=== PATIENT | male | born 1975 | race Caucasian/White ===

== ENCOUNTER 2017-06-08 19:14 | Emergency (ER) | payer SELFPAY ==
[2017-06-08] MEDS ORDERED: Sodium Chloride 0.9% 1,000 ML IV ONE ×2 (20:26→21:10)
[2017-06-08] MEDS ORDERED: Ondansetron 4 MG/2 ML SDV IVPUSH ONE (20:28)
--- NOTE | 2017-06-08 20:28 | EDM.PDOC ---
ED HPI GENERAL MEDICAL PROBLEM - General Chief Complaint: Gastrointestinal Problem Stated Complaint: NASUEA,VOMATING Time Seen by Provider: 06/08/17 20:27 Source of Information: Reports: Patient - History of Present Illness INITIAL COMMENTS - FREE TEXT/NARRATIVE: HISTORY AND PHYSICAL: History of present illness: []Patient is a 42-year-old male with history of diabetes who presents with coughing fits for 2 days he has coughed until he has vomited he has had some stomach upset since, he does not check his glucose over the last couple of weeks as he has lost his glucometer. He has smoking history [id number] denies fever complains of a cough and vomiting no abdominal discomfort previous appendectomy last bowel movement yesterday Review of systems: As per history of present illness and below otherwise all systems reviewed and negative. Past medical history: As per history of present illness and as reviewed below otherwise noncontributory. Surgical history: As per history of present illness and as reviewed below otherwise noncontributory. Social history: No reported history of drug or alcohol abuse. Family history: As per history of present illness and as reviewed below otherwise noncontributory. Physical exam: HEENT: Atraumatic, normocephalic, pupils reactive, negative for conjunctival pallor or scleral icterus, mucous membranes moist, throat clear, neck supple, nontender, trachea midline. Tenderness on frontal and maxillary sinuses left greater than right Lungs: Clear to auscultation, breath sounds equal bilaterally, chest nontender. Heart: S1S2, regular, negative for clicks, rubs, or JVD. Abdomen: Soft, nondistended diffusely tender with focus in the right lower quadrant Negative for masses or hepatosplenomegaly. Negative for costovertebral tenderness. Pelvis: Stable nontender. Genitourinary: Deferred. Rectal: Deferred. Extremities: Atraumatic, negative for cords or calf pain. Neurovascular unremarkable. Neuro: Awake, alert, oriented. Cranial nerves II through XII unremarkable. Cerebellum unremarkable. Motor and sensory unremarkable throughout. Exam nonfocal. Diagnostics: []Lab as below EKG Chest [address] abdomen pelvis with contrast Therapeutics: []Liter normal saline bolus x2 Zofran 8 mg IV DuoNeb insulin 10 U sc 10 uIV zpak 250mg no rf hfa glucometer 1 month supply f/u pcp 2 weekis rpw Impression: Hyperglycemia 222 on d/c nausea Acute bronchitis Acute sinusitis Chronic history of baseline Definitive disposition and diagnosis as appropriate pending reevaluation and review of above. generalized Pain Score (Numeric/FACES): 8 - Related Data Allergies Allergy/AdvReac Type Severity Reaction Status Date / Time Sulfa (Sulfonamide Allergy Rash Verified 06/08/17 19:48 Antibiotics) Home Meds: Home Meds Insulin Npl/Insulin Lispro [HumaLOG Mix 75-25 Vial] 50 unit SQ 06/08/17 [History ] Jenuvia 06/08/17 [History] glipiZIDE [Glipizide ER] 20 mg PO 06/08/17 [History] metFORMIN [Glucophage XR] 500 mg PO BIDMEALS 06/08/17 [History] Past Medical History HEENT History: Reports: Impaired Vision Cardiovascular History: Reports: Heart Murmur, Hypertension Respiratory History: Reports: None Other Respiratory History: current smoker Genitourinary History: Reports: None Musculoskeletal History: Reports: Arthritis Neurological History: Reports: Head Trauma Psychiatric History: Reports: None Endocrine/Metabolic History: Reports: Diabetes, Type II Hematologic History: Reports: None Oncologic (Cancer) History: Reports: None Dermatologic History: Reports: None - Infectious Disease History Infectious Disease History: Reports: None - Past Surgical History HEENT Surgical History: Reports: Other (See Below) Other HEENT Surgeries/Procedures: corrective eye surgery GI Surgical History: Reports: Appendectomy Social & Family History - Family History Family Medical History: Noncontributory - Tobacco Use Smoking Status *Q: Current Every Day Smoker Years of Tobacco use: 30 Packs/Tins Daily: 1 - Recreational Drug Use Recreational Drug Use: Yes Recreational Drug Type: Reports: Marijuana/Hashish ED ROS GENERAL - Review of Systems Review Of Systems: See Below ED EXAM, GENERAL - Physical Exam Exam: See Below Course - Vital Signs Last Recorded V/S: Last Vital Signs Temp 36.6 C 06/08/17 21:59 Pulse 104 H 06/08/17 21:59 Resp 17 06/08/17 21:59 BP 128/80 06/08/17 21:59 Pulse Ox 94 L 06/08/17 21:59 - Orders/Labs/Meds Orders: Active Orders 24 hr Category Date Time Status EKG Documentation Completion [RC] STAT Care 06/08/17 20:26 Active RT Aerosol Therapy [RC] ASDIRECTED Care 06/08/17 20:33 Active Abdomen Pelvis w Cont [CT] Stat Exams 06/08/17 22:48 Taken Chest 1V Frontal [CR] Stat Exams 06/08/17 20:26 Taken Labs: Laboratory Tests 06/08/17 06/08/17 06/08/17 Range/Units 20:35 20:35 20:35 WBC 7.21 (4.0-11.0) K/uL RBC 5.57 (4.50-5.90) M/uL Hgb 16.6 (13.0-17.0) g/dL Hct 46.2 (38.0-50.0) % MCV 82.9 (80.0-98.0) fL MCH 29.8 (27.0-32.0) pg MCHC 35.9 (31.0-37.0) g/dL RDW Std Deviation 38.1 (28.0-62.0) fl RDW Coeff of Sagr[place] 13 (11.0-15.0) % Plt Count 229 (150-400) K/uL MPV 10.60 (7.40-12.00) fL Add Manual Diff YES Neutrophils % (Manual) 71 (48.0-80.0) % Lymphocytes % (Manual) 11 L (16.0-40.0) % Monocytes % (Manual) 15 (0.0-15.0) % Eosinophils % (Manual) 2 (0.0-7.0) % Basophils % (Manual) 1 (0.0-1.5) % Nucleated RBC % 0.0 /100WBC Absolute Seg Neuts 5.1 Lymphocytes # (Manual) 0.8 Monocytes # (Manual) 1.1 Eosinophils # (Manual) 0.1 Basophils # (Manual) 0 Nucleated RBCs # 0 K/uL ABG pH (7.35-7.45) ABG pCO2 (35-45) mmHG ABG pO2 (75-100) mmHG ABG HCO3 (22-26) mEq/L ABG Total CO2 ABG Base Excess (-2.0-2.0) Sodium 132 L (136-146) mmol/L Potassium 4.7 (3.5-5.1) mmol/L Chloride 96 L (98-110) mmol/L Carbon Dioxide 21 (21-31) mmol/L BUN 14 (6.0-23.0) mg/dL Creatinine 1.2 (0.6-1.5) mg/dL Est Cr Clr Drug Dosing 73.84 mL/min Estimated GFR (MDRD) > 60.0 ml/min Glucose 585 H* (60-110) mg/dL POC Glucose (60-110) mg/dL Calcium 9.8 (8.8-10.8) mg/dL Total Bilirubin 0.6 (0.1-1.5) mg/dL AST 12 (5-40) IU/L ALT 10 (8-54) IU/L Alkaline Phosphatase 126 (40-150) Troponin I < 0.10 (0.0-0.29) NG/ML Total Protein 7.5 (6.0-8.0) g/dL Albumin 4.3 (3.5-5.0) g/dL Globulin 3.2 (2.0-3.5) g/dL Albumin/Globulin Ratio 1.3 (1.3-2.8) Amylase 17 (10-90) U/L Lipase 14 (7-80) U/L Urine Color Urine Appearance Urine pH (5.0-8.0) Ur Specific R[place]con (1.001-1.035) Urine Protein (NEGATIVE) mg/dL Urine Glucose (UA) (NEGATIVE) mg/dL Urine Ketones (NEGATIVE) mg/dL Urine Occult Blood (NEGATIVE) Urine Nitrite (NEGATIVE) Urine Bilirubin (NEGATIVE) Urine Urobilinogen (<2.0) EU/dL Ur Leukocyte Esterase (NEGATIVE) Urine RBC (0-2/HPF) Urine WBC (0-5/HPF) Ur Epithelial Cells (NONE-FEW) Amorphous Sediment (NEGATIVE) Urine Bacteria (NEGATIVE) 06/08/17 06/08/17 06/08/17 Range/Units 21:11 22:00 22:05 WBC (4.0-11.0) K/uL RBC (4.50-5.90) M/uL Hgb (13.0-17.0) g/dL Hct (38.0-50.0) % MCV (80.0-98.0) fL MCH (27.0-32.0) pg MCHC (31.0-37.0) g/dL RDW Std Deviation (28.0-62.0) fl RDW Coeff of [place] (11.0-15.0) % Plt Count (150-400) K/uL MPV (7.40-12.00) fL Add Manual Diff Neutrophils % (Manual) (48.0-80.0) % Lymphocytes % (Manual) (16.0-40.0) % Monocytes % (Manual) (0.0-15.0) % Eosinophils % (Manual) (0.0-7.0) % Basophils % (Manual) (0.0-1.5) % Nucleated RBC % /100WBC Absolute Seg Neuts Lymphocytes # (Manual) Monocytes # (Manual) Eosinophils # (Manual) Basophils # (Manual) Nucleated RBCs # K/uL ABG pH 7.390 (7.35-7.45) ABG pCO2 36 (35-45) mmHG ABG pO2 78 (75-100) mmHG ABG HCO3 22 (22-26) mEq/L ABG Total CO2 19.2 ABG Base Excess -2.6 L (-2.0-2.0) Sodium (136-146) mmol/L Potassium (3.5-5.1) mmol/L Chloride (98-110) mmol/L Carbon Dioxide (21-31) mmol/L BUN (6.0-23.0) mg/dL Creatinine (0.6-1.5) mg/dL Est Cr Clr Drug Dosing mL/min Estimated GFR (MDRD) ml/min Glucose (60-110) mg/dL POC Glucose 288 H (60-110) mg/dL Calcium (8.8-10.8) mg/dL Total Bilirubin (0.1-1.5) mg/dL AST (5-40) IU/L ALT (8-54) IU/L Alkaline Phosphatase (40-150) Troponin I (0.0-0.29) NG/ML Total Protein (6.0-8.0) g/dL Albumin (3.5-5.0) g/dL Globulin (2.0-3.5) g/dL Albumin/Globulin Ratio (1.3-2.8) Amylase (10-90) U/L Lipase (7-80) U/L Urine Color YELLOW Urine Appearance CLEAR Urine pH 5.5 (5.0-8.0) Ur Specific R[place] 1.010 (1.001-1.035) Urine Protein NEGATIVE (NEGATIVE) mg/dL Urine Glucose (UA) >=1000 (NEGATIVE) mg/dL Urine Ketones 40 H (NEGATIVE) mg/dL Urine Occult Blood NEGATIVE (NEGATIVE) Urine Nitrite NEGATIVE (NEGATIVE) Urine Bilirubin NEGATIVE (NEGATIVE) Urine Urobilinogen 0.2 (<2.0) EU/dL Ur Leukocyte Esterase NEGATIVE (NEGATIVE) Urine RBC NONE SEEN (0-2/HPF) Urine WBC 0-1 (0-5/HPF) Ur Epithelial Cells RARE (NONE-FEW) Amorphous Sediment RARE (NEGATIVE) Urine Bacteria RARE (NEGATIVE) Meds: Medications Discontinued Medications Generic Name Dose Route Start Last Admin Trade Name Freq PRN Reason Stop Dose Admin Albuterol/Ipratropium 3 ml 06/08/17 20:33 06/08/17 20:49 Duoneb 3.0-0.5 Mg/3 Ml NEB 06/08/17 20:34 3 ml ONETIME ONE Administration Sodium Chloride 1,000 mls @ 999 mls/hr 06/08/17 20:26 06/08/17 20:39 Normal Saline IV 06/08/17 21:26 999 mls/hr STAT ONE Administration Sodium Chloride 1,000 mls @ 999 mls/hr 06/08/17 21:10 06/08/17 21:20 Normal Saline IV 06/08/17 22:10 999 mls/hr STAT ONE Administration Insulin Human Regular 10 unit 06/08/17 21:10 06/08/17 21:30 Novolin R IVPUSH 06/08/17 21:11 10 units ONETIME ONE Administration Protocol Insulin Human Regular 10 unit 06/08/17 21:11 06/08/17 21:33 Novolin R SUBCUT 06/08/17 21:12 10 units NOW STA Administration Protocol Iopamidol 100 ml 06/08/17 23:20 06/08/17 23:21 Isovue-370 (76%) IVPUSH 06/08/17 23:21 100 ml ONETIME STA Administration Methylprednisolone Sodium Succinate 125 mg 06/08/17 20:33 06/08/17 20:45 Solu-Medrol IVPUSH 06/08/17 20:34 125 mg ONETIME ONE Administration Ondansetron HCl 8 mg 06/08/17 20:28 06/08/17 20:43 Zofran IVPUSH 06/08/17 20:29 8 mg ONETIME ONE Administration Departure - Departure Time of Disposition: 00:49 Disposition: Home, Self-Care 01 Condition: Good Clinical Impression: Abdominal pain, Sinusitis, Bronchitis - Discharge Information Referrals: PCP,None [Primary Care Provider] - Forms: ED Department Discharge - My Orders Last 24 Hours: My Active Orders 06/08/17 20:26 EKG Documentation Completion [RC] STAT Chest 1V Frontal [CR] Stat 06/08/17 20:33 RT Aerosol Therapy [RC] ASDIRECTED 06/08/17 22:48 Abdomen Pelvis w Cont [CT] Stat - Assessment/Plan Last 24 Hours: My Active Orders 06/08/17 20:26 EKG Documentation Completion [RC] STAT Chest 1V Frontal [CR] Stat 06/08/17 20:33 RT Aerosol Therapy [RC] ASDIRECTED 06/08/17 22:48 Abdomen Pelvis w Cont [CT] Stat
[2017-06-08] MEDS ORDERED: Albuterol/Ipratropium 3.0-0.5 MG/3 ML Neb Soln NEB ONE (20:33)
[2017-06-08] MEDS ORDERED: methylPREDNISolone Sodium Succinate 125 MG/2 ML SDV IVPUSH ONE (20:33)
[2017-06-08 21:09] LABS: CHLORIDE,CL 96 mmol/L (98-110); SODIUM,NA 132 mmol/L (136-146)
[2017-06-08] MEDS ORDERED: Insulin Regular, Human 100 Units/ML 10 ML Vial IVPUSH ONE (21:10)
[2017-06-08] MEDS ORDERED: Insulin Regular, Human 100 Units/ML 10 ML Vial SUBCUT STA (21:11)
[2017-06-08] MEDS ORDERED: Iopamidol 755 Mg/ML 100 ML Bottle IVPUSH STA (23:20)
[2017-06-09 04:55] VITALS: BP 98/64
--- NOTE | 2017-06-09 10:24 | CR ---
EXAM DATE: 06/08/17 PATIENT'S AGE: 42 Patient: KYARA BAILEY Facility: [place], [place] Site . Site : 1975 Study: XRay Chest [id number]/26/2017 9:37:34 PM Ordering Physician: Zulema Hernandez Final Report: INDICATION: Pain, nausea and vomiting TECHNIQUE: Chest were reviewed COMPARISON: Move current FINDINGS: Cardiovascular and mediastinum: Heart size and vasculature are normal in caliber and appearance. Mediastinum is within normal limits. Lungs and pleural spaces: Lungs are clear. No sign of infiltrate or mass. No sign of pleural effusion. No pneumothorax. 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 IMPRESSION: No acute pulmonary or cardiac abnormalities. Dictated by Mayank Trevizo MD @ 06/08/2017 10:04:58 PM Dictated by: Mayank Trevizo MD @ 06/08/2017 22:05:04 (Electronic Signature) Report Signed by Proxy. BLAZE
--- NOTE | 2017-06-09 10:25 | CT ---
EXAM DATE: 06/08/17 PATIENT'S AGE: 42 Patient: KYARA BAILEY Facility: [place], [place] Site . Site : 1975 Study: CT Abdomen/Pelvis W CONT [id number]/26/2017 11:25:28 PM Ordering Physician: Zulema Hernandez Final Report: INDICATION: ABDOMINAL PAIN, DIZZINESS, BLURRED VISION FOR [address] ABDOMEN AND PELVIS WITH CONTRAST TECHNIQUE: Multidetector CT imaging was performed through the abdomen and pelvis following intravenous contrast administration using 100 mL Isovue 370. Coronal and sagittal reconstructions were generated. COMPARISON: None. FINDINGS: Lower chest: Lung bases are clear. Liver: Within normal limits. Gallbladder and bile ducts: No gallbladder wall thickening or calcified gallstones. No biliary dilation identified. Pancreas: Unremarkable. Spleen: Normal. Adrenals: No nodules or masses. Kidneys, ureters, and urinary bladder: Small hypodensities within the left kidney are not well characterized due to their small size but likely represent cysts. No hydronephrosis. Incompletely distended urinary bladder with resultant mild wall prominence. No bladder mass or definite wall thickening. Gastrointestinal tract: Normal caliber bowel without wall thickening. Appendix not identified. Vascular structures: Normal for age. Peritoneum: No free air, abscess, or significant free fluid. Lymph nodes: No pathologically enlarged nodes identified. Reproductive organs: No pelvic masses. Bones: Multiple subacute nondisplaced healing lateral and posterior left rib fractures. Chronic bilateral L5 pars defects without significant spondylolisthesis. IMPRESSION: 1. No acute abnormality identified. No specific cause for the patient`s symptoms is demonstrated. 2. Multiple subacute lower left rib fractures. 3. Chronic bilateral L5 pars defects. 4. Small probable left renal cysts. LISBETH VYAS MD [employer] Dictated by Cristhian Vyas MD @ 06/08/2017 11:35:20 PM Dictated by: Cristhian Vyas MD @ 06/08/2017 23:37:08 (Electronic Signature) Report Signed by Proxy. [facility]
== END 2017-06-09 00:27 | disposition home or self-care (01) ==
LOC: MW.ED 19:14
DX: R11.2 Nausea with vomiting, unspecified (principal); R10.84 Generalized abdominal pain; J20.9 Acute bronchitis, unspecified; J01.90 Acute sinusitis, unspecified; E11.65 Type 2 diabetes mellitus with hyperglycemia; F17.210 Nicotine dependence, cigarettes, uncomplicated; Z90.49 Acquired absence of other specified parts of digestive tract; I10 Essential (primary) hypertension; M19.90 Unspecified osteoarthritis, unspecified site; Z79.4 Long term (current) use of insulin; Z88.2 Allergy status to sulfonamides
CPT/HCPCS: 36415; 36600; 71010; 74177; 80053; 81001; 82150; 82803; 82962; 83690; 84484; 85025; 93005; 94664; 96361; 96372; 96374; 96375; 99285; J2405; J2930; J7040; Q9967; 99282; J1815-GY